=== PATIENT | female | born 1965 | race Caucasian/White ===

== ENCOUNTER 2017-01-31 08:25 | Emergency (ER) | payer MEDICAID ==
[~2017-01-31] VITALS: Ht 152.4 cm; Wt 86.0 kg
[~2017-01-31 08:25] MED LIST: AMIT75TA PO; CHOL200012 PO; CITA20TA9 PO; LEVO50TA5 PO
[2017-01-31] MEDS ORDERED: HYDROcodone/APAP 5/325 TABLET ONE (08:52)
[2017-01-31] MEDS ORDERED: PLEASE ENTER HEIGHT AND WEIGHT MC SCH (09:00)
[2017-01-31] MEDS ORDERED: HYDROcodone/APAP 5/325 TABLET PO ONE (09:00)
[2017-01-31 09:51] VITALS: BP 144/92
== END 2017-01-31 09:54 | disposition home or self-care (01) ==
LOC: ED 08:37
DX: S40.012A Contusion of left shoulder, initial encounter (principal); E03.9 Hypothyroidism, unspecified; B18.2 Chronic viral hepatitis C; M32.9 Systemic lupus erythematosus, unspecified; W01.0XXA Fall on same level from slipping, tripping and stumbling without subsequent striking against object, initial encounter; Y93.89 Activity, other specified; Y92.89 Other specified places as the place of occurrence of the external cause; Y99.8 Other external cause status
CPT/HCPCS: 99284

== ENCOUNTER 2017-06-22 09:44 | Emergency (ER) | payer MEDICAID ==
[~2017-06-22 09:44] MED LIST changes: -CHOL200012 PO; +CHOL200074 PO
[2017-06-22 10:14] VITALS: BP 135/79
== END 2017-06-22 11:01 | disposition home or self-care (01) ==
LOC: ED 10:55
DX: J20.8 Acute bronchitis due to other specified organisms (principal); E03.9 Hypothyroidism, unspecified
CPT/HCPCS: 99283

== ENCOUNTER 2017-09-14 16:02 | Inpatient (IN) | payer MEDICAID ==
[~2017-09-14] VITALS: Ht 157.5 cm; Wt 86.9 kg
[2017-09-14] MEDS ORDERED: ALBUTEROL/IPRATROPIUM 2.5MG/0.5MG, 3 ML ONE ×2 (17:21→22:15)
[2017-09-14] MEDS ORDERED: SODIUM CHLORIDE FLUSH 10ML SYR IVF ONE (17:30)
[2017-09-14] MEDS ORDERED: ALBUTEROL/IPRATROPIUM 2.5MG/0.5MG, 3 ML NPPB ONE (17:30)
[2017-09-14] MEDS ORDERED: SODIUM CHLORIDE 0.9% 1,000ML IVBOLUS ONE (17:30)
[2017-09-14] MEDS ORDERED: LORazepam 2 MG/ML, 1ML IVPush ONE (17:30)
[2017-09-14 17:39] LABS: ASPARTATE AMINO TRANSFERASE 268 U/L (15-37); BLOOD UREA NITROGEN 24 mg/dL (7-18)
[2017-09-14 18:58] LABS: ABG COLLECTION SITE LEFT RADIAL; COLLATERAL CIRCULATION TESTING NORMAL
[2017-09-14 19:00] LABS: HEMATOCRIT 36.5 % (34.6-47.8); HEMOGLOBIN 12.2 g/dL (11.7-16.4); WHITE BLOOD COUNT 17.3 x10^3/uL (3.4-10)
[2017-09-14] MEDS ORDERED: ALBUTEROL SULFATE 2.5 MG/3 ML NPPB ONE (19:00)
[2017-09-14] MEDS ORDERED: methylPREDNISolone SOD SUCC 125 MG/2 ML IVPush ONE (19:00)
[2017-09-14] MEDS ORDERED: methylPREDNISolone SOD SUCC 125 MG/2 ML ONE (19:22)
[2017-09-14 21:20] LABS: DAU SCREEN DISCLAIMER
[2017-09-14] MEDS ORDERED: D5%-0.45% NACL 1,000 ML IV ONE (22:00)
[2017-09-14] MEDS ORDERED: ONDANSETRON 2MG/ML, 2ML IVPush PRN (22:30)
[2017-09-14] MEDS ORDERED: hydrALAzine 20 MG/ML, 1ML IVPush PRN (22:30)
[2017-09-14] MEDS ORDERED: LORazepam 2 MG/ML, 1ML IVPush PRN (23:00)
[2017-09-14 23:30] VITALS: BP 122/50
[2017-09-14] MEDS ORDERED: ALBUTEROL/IPRATROPIUM 2.5MG/0.5MG, 3 ML NPPB PRN (23:30)
[2017-09-14] MEDS: SODIUM CHLORIDE 0.9% 1,000 ML IV SCH (23:42)
[2017-09-15 01:16] VITALS: BP 116/54
[2017-09-15] MEDS: ENOXAPARIN 40 MG/0.4 ML SQ SCH (04:53)
[2017-09-15] MEDS: LEVOTHYROXINE 50 MCG TABLET PO SCH (04:53)
[2017-09-15] MEDS: SODIUM CHLORIDE 0.9% 1,000 ML IV SCH ×3 (04:54→18:11)
[2017-09-15] MEDS: methylPREDNISolone SOD SUCC 125 MG/2 ML IVPush SCH ×3 (04:54→22:17)
[2017-09-15 06:11] LABS: HEMATOCRIT 37.4 % (34.6-47.8); HEMOGLOBIN 12.7 g/dL (11.7-16.4); WHITE BLOOD COUNT 13.2 x10^3/uL (3.4-10)
[2017-09-15 06:23] LABS: ASPARTATE AMINO TRANSFERASE 184 U/L (15-37); BLOOD UREA NITROGEN 17 mg/dL (7-18)
[2017-09-15] MEDS: ALBUTEROL/IPRATROPIUM 2.5MG/0.5MG, 3 ML NPPB SCH ×4 (06:34→20:33)
[2017-09-15 07:27] VITALS: BP 114/64
[2017-09-15] MEDS: ACETAMINOPHEN 325 MG TABLET PO PRN ×2 (09:16→16:33)
[2017-09-15] MEDS ORDERED: POTASSIUM PHOSPHATE 22 MEQ in SODIUM CHLORIDE 0.9% 500 ML IV SCH (10:30)
[2017-09-15] MEDS ORDERED: POTASSIUM PHOS 4.4 MEQ/ML IV ONE (10:30)
[2017-09-15 13:53] VITALS: BP 114/70
[2017-09-15 19:20] VITALS: BP 119/76
[2017-09-16 01:14] VITALS: BP 134/73
[2017-09-16] MEDS: LEVOTHYROXINE 50 MCG TABLET PO SCH (05:00)
[2017-09-16] MEDS: SODIUM CHLORIDE 0.9% 1,000 ML IV SCH (05:00)
[2017-09-16] MEDS: ACETAMINOPHEN 325 MG TABLET PO PRN ×2 (05:00→09:27)
[2017-09-16] MEDS: ENOXAPARIN 40 MG/0.4 ML SQ SCH (05:01)
[2017-09-16] MEDS: methylPREDNISolone SOD SUCC 125 MG/2 ML IVPush SCH (05:48)
[2017-09-16] MEDS: ALBUTEROL/IPRATROPIUM 2.5MG/0.5MG, 3 ML NPPB SCH ×2 (06:44→09:47)
[2017-09-16 07:23] LABS: HEMATOCRIT 34.3 % (34.6-47.8); HEMOGLOBIN 11.6 g/dL (11.7-16.4); WHITE BLOOD COUNT 12.2 x10^3/uL (3.4-10)
[2017-09-16 07:41] LABS: ASPARTATE AMINO TRANSFERASE 125 U/L (15-37); BLOOD UREA NITROGEN 13 mg/dL (7-18)
[2017-09-16 07:43] VITALS: BP 107/64
[2017-09-16] MEDS ORDERED: POTASSIUM PHOSPHATE 22 MEQ in SODIUM CHLORIDE 0.9% 500 ML IV SCH (08:30)
[2017-09-16] MEDS ORDERED: POTASSIUM PHOS 4.4 MEQ/ML IV ONE (09:00)
[2017-09-16] MEDS ORDERED: IPRA3AMP NPPB (11:56)
[2017-09-16] MEDS ORDERED: METH4TAB2 PO (11:56)
== END 2017-09-16 13:12 | disposition home or self-care (01) | DRG 557 ==
LOC: ED 16:09 → EDIP 22:04 → SUATTDRO 22:08 → 4WST 23:37 → DCLOUNGE 09-16 12:57
PROVIDERS: ADMIT Hospitalist; ATTEND Family Medicine
PROC: 0T9B70Z Drainage of Bladder with Drainage Device, Via Natural or Artificial Opening (ICD-10-PCS; principal; 2017-09-14)
DX: M62.82 Rhabdomyolysis (principal); G92 Toxic encephalopathy; J44.1 Chronic obstructive pulmonary disease with (acute) exacerbation; J45.901 Unspecified asthma with (acute) exacerbation; Z78.1 Physical restraint status; N19 Unspecified kidney failure; B18.2 Chronic viral hepatitis C; D72.829 Elevated white blood cell count, unspecified; E03.9 Hypothyroidism, unspecified; E66.9 Obesity, unspecified; Z68.35 Body mass index [BMI] 35.0-35.9, adult; F15.10 Other stimulant abuse, uncomplicated; F17.200 Nicotine dependence, unspecified, uncomplicated; F29 Unspecified psychosis not due to a substance or known physiological condition; Z79.899 Other long term (current) drug therapy
CPT/HCPCS: 36415; 36600; 70450; 71010; 80053; 80307; 81001; 82550; 82803; 83735; 84100; 84443; 85025; 94640; 96361; 96374; J1650; J7613; J7620; G0479; J2930; J7030; J7040

== ENCOUNTER 2018-01-19 23:14 | Emergency (ER) | payer MEDICAID ==
[~2018-01-19] VITALS: Ht 154.9 cm; Wt 80.0 kg
[~2018-01-19 23:14] MED LIST changes: +IPRA3AMP NPPB; +METH4TAB2 PO
[2018-01-19] MEDS ORDERED: ALBU6.7H INH (23:24)
[2018-01-19] MEDS ORDERED: LORazepam 2 MG/ML, 1ML ONE (23:26)
[2018-01-19] MEDS ORDERED: ZIPRASIDONE 20 MG INJ IM ONE ×2 (23:26→23:30)
[2018-01-19] MEDS ORDERED: LORazepam 2 MG/ML, 1ML IM ONE (23:30)
[2018-01-20 11:52] VITALS: BP 136/82
== END 2018-01-20 11:54 | disposition home or self-care (01) ==
LOC: ED 01-20 06:11
DX: F15.10 Other stimulant abuse, uncomplicated (principal); G92 Toxic encephalopathy; E03.9 Hypothyroidism, unspecified; J45.909 Unspecified asthma, uncomplicated; Z98.51 Tubal ligation status
CPT/HCPCS: 96372; 99284; J2060; J3486

== ENCOUNTER 2018-02-12 15:40 | Inpatient (IN) | payer MEDICAID ==
[~2018-02-12] VITALS: Ht 152.4 cm; Wt 71.9 kg
[~2018-02-12 15:40] MED LIST changes: +ALBU6.7H INH
[2018-02-12 16:10] LABS: BASOPHILS # (AUTO) 0.01 x10^3/uL (0-0.1); BASOPHILS % (AUTO) 0 % (0-1); EOSINOPHILS % (AUTO) 0 % (1-7); LYMPHOCYTES # (AUTO) 0.89 x10^3/uL (1-3.4); LYMPHOCYTES % (AUTO) 7 % (22-44); MD NO; MEAN CORPUSCULAR HEMOGLOBIN 28.4 pg (27.0-34.8); MEAN CORPUSCULAR HGB CONC 33.4 g/dL (32.4-35.8); MEAN CORPUSCULAR VOLUME 85.2 fL (80-100); MEAN PLATELET VOLUME 8.4 fL (7.4-10.4); MONOCYTES # (AUTO) 0.58 x10^3/uL (0.2-0.8); MONOCYTES % (AUTO) 4 % (2-9); NEUTROPHILS # (AUTO) 12.15 x10^3/uL (1.8-6.8); NEUTROPHILS % (AUTO) 89 % (42-75); PLATELET COUNT 366 x10^3/uL (130-400); RED BLOOD COUNT 5.37 x10^6/uL (3.82-5.3); RED CELL DISTRIBUTION WIDTH 15.2 % (9.6-15.2)
[2018-02-12 16:19] LABS: INTERNATIONAL NORMALIZED RATIO 1.06 (0.93-1.1)
[2018-02-12 16:24] LABS: ALANINE AMINOTRANSFERASE 71 U/L (12-78); ALBUMIN 4.1 g/dL (3.4-5.0); ANION GAP 15 mmol/L (5-15); CALCIUM 9.8 mg/dL (8.5-10.1); CHLORIDE 103 mmol/L (98-107)
[2018-02-12 16:25] LABS: SALICYLATE LEVEL < 1.7 mg/dL (2.8-20.0)
[2018-02-12 16:29] LABS: ALKALINE PHOSPHATASE 118 U/L (45-117); BILIRUBIN,TOTAL 0.9 mg/dL (0.2-1.0); TOTAL PROTEIN 9.7 g/dL (6.4-8.2)
[2018-02-12 16:36] LABS: ACETAMINOPHEN < 2 mcg/mL (10-30)
[2018-02-12 17:10] LABS: MICROSCOPIC INDICATED
[2018-02-12 17:27] LABS: CULTURE INDICATED? YES
[2018-02-12 17:28] LABS: AMPHETAMINE SCREEN, URINE Positive (Negative); BARBITURATE SCREEN, URINE Negative (Negative); BENZODIAZEPINE SCREEN, URINE Positive (Negative); CANNABINOID SCREEN, URINE Negative (Negative); COCAINE SCREEN, URINE Negative (Negative); METHADONE SCREEN, URINE Negative (Negative); OPIATE SCREEN, URINE Negative (Negative)
[2018-02-12] MEDS ORDERED: ZIPRASIDONE 20 MG INJ IM ONE ×2 (17:57→18:00)
[2018-02-12] MEDS ORDERED: CEFTRIAXONE PMX 1GM/50ML 50 ML IV ONE (19:00)
[2018-02-12] MEDS ORDERED: AZITHROMYCIN 500 MG in SODIUM CHLORIDE 0.9% 250 ML IV ONE (19:00)
[2018-02-12] MEDS ORDERED: ENALAPRILAT 1.25 MG/ML, 2ML IV PRN (20:00)
[2018-02-12] MEDS ORDERED: BISACODYL 10 MG SUPP PR PRN (20:00)
[2018-02-12 20:46] VITALS: BP 121/88
[2018-02-12] MEDS: ATORVASTATIN 40 MG TABLET PO SCH (21:00)
[2018-02-12] MEDS ORDERED: ASPIRIN 300 MG SUPP PR ONE (22:30)
[2018-02-13 00:09] VITALS: BP 102/72
[2018-02-13 04:07] VITALS: BP 140/80
[2018-02-13 05:06] LABS: BASOPHILS # (AUTO) 0.08 x10^3/uL (0-0.1); BASOPHILS % (AUTO) 1 % (0-1); EOSINOPHILS % (AUTO) 0 % (1-7); LYMPHOCYTES # (AUTO) 3.25 x10^3/uL (1-3.4); LYMPHOCYTES % (AUTO) 25 % (22-44); MD NO; MEAN CORPUSCULAR HEMOGLOBIN 28.3 pg (27.0-34.8); MEAN CORPUSCULAR HGB CONC 32.9 g/dL (32.4-35.8); MEAN PLATELET VOLUME 8.6 fL (7.4-10.4); MONOCYTES # (AUTO) 1.28 x10^3/uL (0.2-0.8); MONOCYTES % (AUTO) 10 % (2-9); NEUTROPHILS # (AUTO) 8.21 x10^3/uL (1.8-6.8); NEUTROPHILS % (AUTO) 64 % (42-75); PLATELET COUNT 395 x10^3/uL (130-400); RED BLOOD COUNT 4.82 x10^6/uL (3.82-5.3); RED CELL DISTRIBUTION WIDTH 15.1 % (9.6-15.2)
[2018-02-13 05:20] LABS: CHLORIDE 103 mmol/L (98-107)
[2018-02-13 05:27] LABS: ALANINE AMINOTRANSFERASE 59 U/L (12-78); ALBUMIN 3.6 g/dL (3.4-5.0); ALKALINE PHOSPHATASE 90 U/L (45-117); BILIRUBIN,TOTAL 0.6 mg/dL (0.2-1.0); CALCIUM 9.5 mg/dL (8.5-10.1); CHOL/HDL RATIO 5.2; CHOLESTEROL, TOTAL 166 mg/dL (140-239); CREATININE 1.14 mg/dL (0.55-1.02); HDL CHOL % 19 % (28-40); HDL CHOLESTEROL (DIRECT) 32 mg/dL (40-60); LDL CHOLESTEROL,CALCULATED 115 mg/dL (54-169); LDL/HDL RATIO 3.6 (0.5-3.0); TOTAL PROTEIN 8.4 g/dL (6.4-8.2); TRIGLYCERIDES 93 mg/dL (50-200); VLDL CHOLESTEROL 19 mg/dL (0-25)
[2018-02-13 05:42] LABS: ANION GAP 10 mmol/L (5-15)
[2018-02-13 07:05] VITALS: BP 131/74
[2018-02-13 08:13] LABS: FOLATE LEVEL 4.4 ng/mL (3.1-17.5)
[2018-02-13] MEDS ORDERED: ASPIRIN 81 MG TABLET CHEW PO/NG SCH (09:00)
[2018-02-13] MEDS ORDERED: LORazepam 2 MG/ML, 1ML IVPush ONE (09:30)
[2018-02-13] MEDS: LEVOTHYROXINE 50 MCG TABLET PO SCH (09:43)
[2018-02-13] MEDS: ACETAMINOPHEN 650 MG/20.3 ML UDC PO PRN ×2 (12:51→19:52)
[2018-02-13] MEDS: NICOTINE 7 MG/24 HR PATCH.TD24 TD SCH (12:52)
[2018-02-13] MEDS: HEPARIN 5,000 UNITS/ML, 1ML SQ SCH ×2 (12:52→19:50)
[2018-02-13] MEDS ORDERED: ASPIRIN 81 MG TABLET CHEW PO ONE (13:00)
[2018-02-13 13:03] VITALS: BP 125/84
[2018-02-13] MEDS ORDERED: AZITHROMYCIN 500 MG in SODIUM CHLORIDE 0.9% 250 ML IV SCH (19:00)
[2018-02-13] MEDS: CEFTRIAXONE PMX 1GM/50ML 50 ML IV SCH (19:52)
[2018-02-13] MEDS: AMITRIPTYLINE 50 MG TABLET PO SCH (19:52)
[2018-02-13] MEDS: ATORVASTATIN 40 MG TABLET PO SCH (19:52)
[2018-02-13 20:09] VITALS: BP 121/74
[2018-02-13] MEDS ORDERED: AMITRIPTYLINE 100 MG TABLET PO SCH (21:00)
[2018-02-14 00:19] VITALS: BP 119/76
[2018-02-14 04:04] VITALS: BP 108/64
[2018-02-14] MEDS: HEPARIN 5,000 UNITS/ML, 1ML SQ SCH ×3 (05:09→21:15)
[2018-02-14] MEDS: LEVOTHYROXINE 50 MCG TABLET PO SCH (05:09)
[2018-02-14 05:40] LABS: BASOPHILS # (AUTO) 0.03 x10^3/uL (0-0.1); BASOPHILS % (AUTO) 0 % (0-1); EOSINOPHILS % (AUTO) 0 % (1-7); LYMPHOCYTES # (AUTO) 1.64 x10^3/uL (1-3.4); LYMPHOCYTES % (AUTO) 20 % (22-44); MD NO; MEAN CORPUSCULAR HEMOGLOBIN 28.5 pg (27.0-34.8); MEAN CORPUSCULAR HGB CONC 33.5 g/dL (32.4-35.8); MEAN CORPUSCULAR VOLUME 85.2 fL (80-100); MEAN PLATELET VOLUME 8.7 fL (7.4-10.4); MONOCYTES # (AUTO) 0.41 x10^3/uL (0.2-0.8); MONOCYTES % (AUTO) 5 % (2-9); NEUTROPHILS # (AUTO) 6.19 x10^3/uL (1.8-6.8); NEUTROPHILS % (AUTO) 75 % (42-75); PLATELET COUNT 328 x10^3/uL (130-400); RED BLOOD COUNT 4.75 x10^6/uL (3.82-5.3)
[2018-02-14 05:44] LABS: CHLORIDE 106 mmol/L (98-107)
[2018-02-14 06:09] LABS: ALANINE AMINOTRANSFERASE 49 U/L (12-78); ALBUMIN 3.2 g/dL (3.4-5.0); ALKALINE PHOSPHATASE 87 U/L (45-117); ANION GAP 8 mmol/L (5-15); BILIRUBIN,TOTAL 0.5 mg/dL (0.2-1.0); CALCIUM 8.8 mg/dL (8.5-10.1); CREATININE 0.76 mg/dL (0.55-1.02); TOTAL PROTEIN 7.7 g/dL (6.4-8.2)
[2018-02-14 07:40] VITALS: BP 112/81
[2018-02-14] MEDS: ACETAMINOPHEN 650 MG/20.3 ML UDC PO PRN ×2 (09:26→18:40)
[2018-02-14] MEDS: NICOTINE 7 MG/24 HR PATCH.TD24 TD SCH (13:00)
[2018-02-14 13:47] VITALS: BP 119/73
[2018-02-14 19:15] VITALS: BP 111/61
[2018-02-14] MEDS: ATORVASTATIN 40 MG TABLET PO SCH (21:15)
[2018-02-14] MEDS: AMITRIPTYLINE 50 MG TABLET PO SCH (21:15)
[2018-02-14] MEDS: CEFTRIAXONE PMX 1GM/50ML 50 ML IV SCH (21:16)
[2018-02-14 23:35] VITALS: BP 110/67
[2018-02-15 04:00] VITALS: BP 123/81
[2018-02-15] MEDS: LEVOTHYROXINE 50 MCG TABLET PO SCH (05:27)
[2018-02-15] MEDS: HEPARIN 5,000 UNITS/ML, 1ML SQ SCH ×2 (05:28→13:54)
[2018-02-15 06:54] VITALS: BP 131/72
[2018-02-15 12:24] VITALS: BP 116/77
[2018-02-15] MEDS: NICOTINE 7 MG/24 HR PATCH.TD24 TD SCH (13:00)
[2018-02-15] MEDS ORDERED: GADOBUTROL 7.5 MMOL/7.5 ML PFS ONE (13:37)
[2018-02-15] MEDS ORDERED: ASPI-496 PO (15:28)
[2018-02-15] MEDS ORDERED: ATOR40TA78 PO (15:28)
[2018-02-15] MEDS ORDERED: SULF1TAB24 PO (15:28)
== END 2018-02-15 18:11 | disposition home or self-care (01) | DRG 871 ==
LOC: EDBD → MERGE 15:40 → ED 18:47 → EDIP 18:58 → 4WST 20:38
PROVIDERS: ADMIT Internal Medicine; ATTEND Internal Medicine
DX: A41.9 Sepsis, unspecified organism (principal); G92 Toxic encephalopathy; I63.9 Cerebral infarction, unspecified; J96.00 Acute respiratory failure, unspecified whether with hypoxia or hypercapnia; J15.9 Unspecified bacterial pneumonia; E87.1 Hypo-osmolality and hyponatremia; J98.11 Atelectasis; N17.9 Acute kidney failure, unspecified; N39.0 Urinary tract infection, site not specified; B18.2 Chronic viral hepatitis C; D32.9 Benign neoplasm of meninges, unspecified; E03.9 Hypothyroidism, unspecified; F15.159 Other stimulant abuse with stimulant-induced psychotic disorder, unspecified; F17.200 Nicotine dependence, unspecified, uncomplicated; J45.909 Unspecified asthma, uncomplicated; Z91.19 Patient's noncompliance with other medical treatment and regimen; Z71.6 Tobacco abuse counseling
CPT/HCPCS: 36415; 70450; 70553; 71045; 80053; 80061; 80307; 80329; 81001; 82607; 82746; 83605; 84145; 84439; 84443; 84703; 85025; 85610; 85730; 87040; 87086; 93306; 93880; 96372; 96374; 97162; A9585; J0456; J0696; J1644; J3486; 92523-GN; G0480; G0515-GN; J7050

== ENCOUNTER 2018-04-30 13:30 | Observation (INO) | payer MEDICAID ==
[~2018-04-30] VITALS: Ht 152.4 cm; Wt 68.9 kg
[~2018-04-30 13:30] MED LIST changes: +ASPI-496 PO; +ATOR40TA78 PO; +SULF1TAB24 PO
[2018-04-30] MEDS ORDERED: LORazepam 1MG TABLET PO ONE (14:00)
[2018-04-30 14:19] LABS: BASOPHILS # (AUTO) 0.02 x10^3/uL (0-0.1); BASOPHILS % (AUTO) 0 % (0-1); EOSINOPHILS % (AUTO) 0 % (1-7); LYMPHOCYTES # (AUTO) 1.35 x10^3/uL (1-3.4); LYMPHOCYTES % (AUTO) 29 % (22-44); MD NO; MEAN CORPUSCULAR HEMOGLOBIN 27.8 pg (27.0-34.8); MEAN CORPUSCULAR HGB CONC 33.4 g/dL (32.4-35.8); MEAN CORPUSCULAR VOLUME 83.2 fL (80-100); MONOCYTES # (AUTO) 0.33 x10^3/uL (0.2-0.8); MONOCYTES % (AUTO) 7 % (2-9); NEUTROPHILS # (AUTO) 3.01 x10^3/uL (1.8-6.8); NEUTROPHILS % (AUTO) 64 % (42-75); PLATELET COUNT 254 x10^3/uL (130-400); RED BLOOD COUNT 4.77 x10^6/uL (3.82-5.3); RED CELL DISTRIBUTION WIDTH 14.6 % (9.6-15.2)
[2018-04-30 14:30] LABS: ANION GAP 9 mmol/L (5-15); CALCIUM 8.1 mg/dL (8.5-10.1); CHLORIDE 106 mmol/L (98-107); CREATININE 0.66 mg/dL (0.55-1.02)
[2018-04-30 14:32] LABS: SALICYLATE LEVEL < 1.7 mg/dL (2.8-20.0)
[2018-04-30 14:33] LABS: ACETAMINOPHEN < 2 mcg/mL (10-30)
[2018-04-30] MEDS ORDERED: ASPIRIN 81 MG TABLET CHEW ONE (14:37)
[2018-04-30] MEDS ORDERED: LORazepam 1MG TABLET ONE (14:37)
[2018-04-30 14:51] LABS: TROPONIN I < 0.015 ng/mL (0.000-0.045)
[2018-04-30 14:55] LABS: AMPHETAMINE SCREEN, URINE Negative (Negative); BARBITURATE SCREEN, URINE Negative (Negative); BENZODIAZEPINE SCREEN, URINE Negative (Negative); CANNABINOID SCREEN, URINE Negative (Negative); COCAINE SCREEN, URINE Negative (Negative); METHADONE SCREEN, URINE Negative (Negative); OPIATE SCREEN, URINE Negative (Negative)
[2018-04-30] MEDS ORDERED: ASPIRIN 81 MG TABLET CHEW PO ONE (15:00)
[2018-04-30] MEDS ORDERED: POTASSIUM CHLORIDE 10% 40 MEQ/30 ML UDC PO ONE (16:30)
[2018-04-30] MEDS ORDERED: NITROGLYCERIN 0.4 MG/SPRAY SL PRN (17:30)
[2018-04-30] MEDS ORDERED: NITROGLYCERIN 0.4 MG BOTTLE (25 TABS) SL PRN (17:30)
[2018-04-30] MEDS ORDERED: POTASSIUM CHLORIDE 20 MEQ PACKET ONE (17:40)
[2018-04-30] MEDS ORDERED: IBUP200T49 PO (18:18)
[2018-04-30 18:22] VITALS: BP 137/84
[2018-04-30] MEDS ORDERED: ALBUTEROL/IPRATROPIUM 2.5MG/0.5MG, 3 ML NPPB PRN (19:00)
[2018-04-30 19:51] VITALS: BP 137/84
[2018-04-30] MEDS ORDERED: AMITRIPTYLINE 50 MG TABLET PO SCH (21:00)
[2018-04-30] MEDS ORDERED: SODIUM CHLORIDE FLUSH 10ML SYR IVF SCH (21:00)
[2018-04-30] MEDS ORDERED: ATORVASTATIN 40 MG TABLET PO SCH (21:00)
[2018-04-30] MEDS ORDERED: LORazepam 2 MG/ML, 1ML IVPush PRN (22:00)
[2018-04-30 22:09] LABS: TROPONIN I < 0.015 ng/mL (0.000-0.045)
[2018-05-01] MEDS ORDERED: DIPHENHYDRAMINE 50 MG CAPSULE ONE (00:51)
[2018-05-01] MEDS ORDERED: DIPHENHYDRAMINE 50 MG CAPSULE PO ONE (01:00)
[2018-05-01] MEDS ORDERED: ASPIRIN 325 MG TABLET EC PO SCH (06:00)
[2018-05-01] MEDS ORDERED: CITALOPRAM 20 MG TABLET PO SCH (09:00)
[2018-05-01] MEDS ORDERED: LEVOTHYROXINE 50 MCG TABLET PO SCH (09:00)
== END 2018-05-01 01:41 | disposition left against medical advice (07) ==
LOC: ED 16:50 → EDIP 17:04 → INTOOBSV 17:04 → 5SO 18:03
PROVIDERS: ADMIT Family Medicine; ATTEND Family Medicine
DX: I24.9 Acute ischemic heart disease, unspecified (principal); F41.9 Anxiety disorder, unspecified; I10 Essential (primary) hypertension; E03.9 Hypothyroidism, unspecified; J44.9 Chronic obstructive pulmonary disease, unspecified; M41.9 Scoliosis, unspecified; F17.210 Nicotine dependence, cigarettes, uncomplicated; F10.10 Alcohol abuse, uncomplicated; E87.6 Hypokalemia; F12.10 Cannabis abuse, uncomplicated; F15.10 Other stimulant abuse, uncomplicated; F17.200 Nicotine dependence, unspecified, uncomplicated; F19.20 Other psychoactive substance dependence, uncomplicated; Z79.82 Long term (current) use of aspirin; Z86.14 Personal history of Methicillin resistant Staphylococcus aureus infection; Z90.710 Acquired absence of both cervix and uterus; Z79.899 Other long term (current) drug therapy
CPT/HCPCS: 36415; 71045; 80048; 80307; 80329; 82040; 84484; 84703; 85025; 85379; 93005; 96374; 99285; G0378; J2060; G0480

== ENCOUNTER 2018-09-19 14:03 | Emergency (ER) | payer MEDICAID ==
[~2018-09-19] VITALS: Ht 152.4 cm; Wt 91.0 kg
[~2018-09-19 14:03] MED LIST changes: +IBUP200T49 PO; -IPRA3AMP NPPB; +IPRA3AMP30 NPPB
[2018-09-19] MEDS ORDERED: TIOT18CA INH (14:06)
[2018-09-19 15:17] LABS: BASOPHILS % (AUTO) 2 % (0-1); EOSINOPHILS % (AUTO) 0 % (1-7); LYMPHOCYTES # (AUTO) 1.56 x10^3/uL (1-3.4); LYMPHOCYTES % (AUTO) 17 % (22-44); MD NO; MEAN CORPUSCULAR HEMOGLOBIN 27.8 pg (27.0-34.8); MEAN CORPUSCULAR HGB CONC 33.2 g/dL (32.4-35.8); MEAN CORPUSCULAR VOLUME 83.7 fL (80-100); MEAN PLATELET VOLUME 8.4 fL (7.4-10.4); MONOCYTES # (AUTO) 0.54 x10^3/uL (0.2-0.8); MONOCYTES % (AUTO) 6 % (2-9); NEUTROPHILS # (AUTO) 6.82 x10^3/uL (1.8-6.8); NEUTROPHILS % (AUTO) 75 % (42-75); PLATELET COUNT 241 x10^3/uL (130-400); RED BLOOD COUNT 5.19 x10^6/uL (3.82-5.3); RED CELL DISTRIBUTION WIDTH 15.8 % (9.6-15.2)
[2018-09-19 15:19] VITALS: BP 132/75
[2018-09-19 15:23] LABS: ALANINE AMINOTRANSFERASE 59 U/L (12-78); ALBUMIN 3.3 g/dL (3.4-5.0); ANION GAP 9 mmol/L (5-15); CALCIUM 9.3 mg/dL (8.5-10.1); CHLORIDE 103 mmol/L (98-107); CREATININE 0.88 mg/dL (0.55-1.02)
[2018-09-19 15:27] LABS: ALKALINE PHOSPHATASE 109 U/L (45-117); BILIRUBIN,TOTAL 0.3 mg/dL (0.2-1.0); TOTAL PROTEIN 8.4 g/dL (6.4-8.2); TROPONIN I < 0.015 ng/mL (0.000-0.045)
== END 2018-09-19 16:19 | disposition home or self-care (01) ==
LOC: ED 15:11
DX: J44.9 Chronic obstructive pulmonary disease, unspecified (principal); F17.200 Nicotine dependence, unspecified, uncomplicated; I10 Essential (primary) hypertension; E03.9 Hypothyroidism, unspecified; Z90.89 Acquired absence of other organs; Z90.49 Acquired absence of other specified parts of digestive tract
CPT/HCPCS: 36415; 71045; 80053; 83880; 84484; 85025; 85379; 93005; 99284; J7512

== ENCOUNTER 2018-11-15 11:53 | Emergency (ER) | payer MEDICAID ==
[~2018-11-15] VITALS: Ht 154.9 cm; Wt 85.1 kg
[~2018-11-15 11:53] MED LIST changes: +TIOT18CA INH
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
== END 2018-11-15 13:22 | disposition expired ==
LOC: ED 12:02
DX: I46.9 Cardiac arrest, cause unspecified (principal); E03.9 Hypothyroidism, unspecified; I10 Essential (primary) hypertension; J44.9 Chronic obstructive pulmonary disease, unspecified; Z86.19 Personal history of other infectious and parasitic diseases; F17.200 Nicotine dependence, unspecified, uncomplicated
CPT/HCPCS: 31500; 36680; 92950; 99285